=== PATIENT | male | born 1950 | race Caucasian/White ===

== ENCOUNTER 2022-05-26 05:09 | Day surgery (SDC) | payer MEDICARE, SELFPAY ==
[2022-05-14 15:19] VITALS: BMI 40.5
--- NOTE | 2022-05-25 10:19 | PM.HPGS ---
History of Present Illness History of Present Illness Consent: Risks, benefits, and alternatives have been discussed and questions answered. Patient agrees to proceed with procedure. Chief complaint: hx of colon polyps Narrative: Gaston Yoder is a 71 year old male Here for colon cancer screening. He has history of polyps, having had polyps removed in 11/2010 and also about 5 years ago. Review of Systems Review of Systems: All systems reviewed & are unremarkable except as noted in HPI and below PMFSH Past Medical History Medical History (Updated 05/25/22 @ 10:19 by Jourdan Chavira MD) Atrial fibrillation Diabetes type 2, controlled DOROTEO (obstructive sleep apnea) CPAP Pacemaker Surgical History Surgical History (Updated 05/23/22 @ 14:04 by Gustavo Del Angel DO) History of coronary artery stent placement x3, 2006 History of gastric bypass History of prostatectomy Social History Social History Smoking status: Former smoker Tobacco type: smokeless tobacco Smokeless tobacco user: chewing tobacco Alcohol intake: current Drinks per week: 7 Alcohol use details: COCTAILS Substance use: never Substance use type: does not use Living arrangements: with family Spiritual care concerns: No Meds Home Medications and Allergies Home Medications Medication Instructions Recorded Confirmed Type apixaban 5 mg tablet (Eliquis) 5 mg PO BID 05/14/22 05/26/22 History citalopram 20 mg tablet 20 mg PO DAILY 05/14/22 05/26/22 History dapagliflozin 10 mg tablet 10 mg PO DAILY 05/14/22 05/26/22 History (Farxiga) glimepiride 1 mg tablet 1 mg PO DAILY 05/14/22 05/26/22 History insulin glargine U-300 conc 300 24 unit subcut BID 05/14/22 05/26/22 History unit/mL (3 mL) subcutaneous pen (Toujeo Max U-300 SoloStar) latanoprost 0.005 % eye drops 1 drp EACH EYE HS 05/14/22 05/26/22 History lisinopril 20 mg tablet 20 mg PO DAILY 05/14/22 05/26/22 History magnesium oxide 400 mg (241.3 mg 800 mg PO BID 05/14/22 05/26/22 History magnesium) tablet metformin 500 mg tablet,extended 500 mg PO BID 05/14/22 05/26/22 History release 24 hr pantoprazole 40 mg tablet,delayed 40 mg PO BID 05/14/22 05/26/22 History release pioglitazone 45 mg tablet 45 mg PO DAILY 05/14/22 05/26/22 History simvastatin 40 mg tablet 40 mg PO DAILY 05/14/22 05/26/22 History sotalol 120 mg tablet 120 mg PO BID 05/14/22 05/26/22 History Allergies Allergy/AdvReac Type Severity Reaction Status Date / Time niacin Allergy Intermediate Rash Verified 05/26/22 07:40 Exam Const: General: alert Orientation/consciousness: patient oriented x3 Resp: Auscultation: clear to auscultation bilaterally Cardio: Rhythm: regular rhythm GI: GI Palp: Yes Soft to palpation and No Tenderness to palpation present (GI) Neuro: General: patient oriented x3 Assessment and Plan Assessment and plan (1) Colon cancer screening: Code(s): Z12.11 - Encounter for screening for malignant neoplasm of colon Status: Acute Assessment and Plan: Colonoscopy with possible biopsy or polypectomy or cautery or injection of substances.
[2022-05-26 07:30] VITALS: BP 114/64; PULSE 81; RESP 18; TEMP 36.4; O2SAT 98; BMI 39.9
--- NOTE | 2022-05-26 07:43 | P.PNAN_ITS ---
Anes - Initial Pre Proc Eval Procedure: Operation Date: 05/26/22 08:30 Proposed Procedures p Screening Colonoscopy - Jourdan Chavira MD Date/Time: 05/26/22 07:43 Surgeon: Jourdan Cahvira MD Pre Op Diagnosis: hx of colon polyps Patient Data Age: 71 Gender: M Height: 1.68 m Weight: 114 kg Allergies Allergy/AdvReac Type Severity Reaction Status Date / Time niacin Allergy Intermediate Rash Verified 05/26/22 07:40 Home Medications Medication Instructions Recorded Confirmed Type apixaban 5 mg tablet (Eliquis) 5 mg PO BID 05/14/22 05/26/22 History citalopram 20 mg tablet 20 mg PO DAILY 05/14/22 05/26/22 History dapagliflozin 10 mg tablet 10 mg PO DAILY 05/14/22 05/26/22 History (Farxiga) glimepiride 1 mg tablet 1 mg PO DAILY 05/14/22 05/26/22 History insulin glargine U-300 conc 300 24 unit subcut BID 05/14/22 05/26/22 History unit/mL (3 mL) subcutaneous pen (Toujeo Max U-300 SoloStar) latanoprost 0.005 % eye drops 1 drp EACH EYE HS 05/14/22 05/26/22 History lisinopril 20 mg tablet 20 mg PO DAILY 05/14/22 05/26/22 History magnesium oxide 400 mg (241.3 mg 800 mg PO BID 05/14/22 05/26/22 History magnesium) tablet metformin 500 mg tablet,extended 500 mg PO BID 05/14/22 05/26/22 History release 24 hr pantoprazole 40 mg tablet,delayed 40 mg PO BID 05/14/22 05/26/22 History release pioglitazone 45 mg tablet 45 mg PO DAILY 05/14/22 05/26/22 History simvastatin 40 mg tablet 40 mg PO DAILY 05/14/22 05/26/22 History sotalol 120 mg tablet 120 mg PO BID 05/14/22 05/26/22 History Patient hx anesthesia problems: none Family hx anesthesia problems: none Results Review: All pre-operative results and documents have been reviewed as part of the pre- operative evaluation. [facility] Past Medical History Medical History (Updated 05/25/22 @ 10:19 by Jourdan Chavira MD) Atrial fibrillation Diabetes type 2, controlled DOROTEO (obstructive sleep apnea) CPAP Pacemaker Surgical History Surgical History (Updated 05/23/22 @ 14:04 by Gustavo Del Angel DO) History of coronary artery stent placement x3, 2007 History of gastric bypass History of prostatectomy Social History Social History Smoking status: Former smoker Tobacco type: smokeless tobacco Smokeless tobacco user: chewing tobacco Alcohol intake: current Drinks per week: 7 Alcohol use details: COCTAILS Substance use: never Substance use type: does not use Living arrangements: with family Spiritual care concerns: No Anes - Eval Final PreProcedure Day of Procedure 05/26/22 07:43 Patient weight: morbidly obese Heart: regular rate and rhythm Lungs: clear to auscultation Airway: Mallampati scale class II Neurological: alert and oriented Last oral intake: >/= 8 hours ASA classification: III Emergent: no Anesthetic plan: proceed Anesthesia type and monitoring: general GIVS and standard monitoring Results Review: All pre-operative results and documents have been reviewed as part of the pre- operative evaluation. Informed Consent: The patient's anesthetic plan and its attendant risks and benefits were discussed with the patient/family/POA. Questions were solicited and answers provided to the satisfaction of the patient/family/POA.
[2022-05-26] MEDS: LACTATED RINGERS 1,000 ML 150 ML IV CONT (07:52)
[2022-05-26 07:55] LABS: Glucose Point of Care 141 mg/dl (65-105)
[2022-05-26 08:35] VITALS: BP 130/72; PULSE 80; RESP 19; O2SAT 100
[2022-05-26 08:45] VITALS: BP 130/89; PULSE 80; RESP 23; O2SAT 100
[2022-05-26 08:55] VITALS: BP 133/85; PULSE 80; RESP 20; O2SAT 100
[2022-05-26 09:02] LABS: Glucose Point of Care 118 mg/dl (65-105)
== END 2022-05-26 09:03 | disposition home or self-care (01) ==
PROVIDERS: PCP Internal Medicine; Visit Provider Internal Medicine Gastroenterology
PROC: 0DJD8ZZ Inspection of Lower Intestinal Tract, Via Natural or Artificial Opening Endoscopic (ICD-10-PCS; CPT 45378; principal; 2022-05-26 08:30)
DX: Z12.11 Encounter for screening for malignant neoplasm of colon (principal); K57.30 Diverticulosis of large intestine without perforation or abscess without bleeding; K63.5 Polyp of colon; Z79.82 Long term (current) use of aspirin; Z79.84 Long term (current) use of oral hypoglycemic drugs; Z79.4 Long term (current) use of insulin; G47.33 Obstructive sleep apnea (adult) (pediatric); Z95.0 Presence of cardiac pacemaker; Z87.891 Personal history of nicotine dependence; E66.9 Obesity, unspecified; Z68.41 Body mass index [BMI] 40.0-44.9, adult; Z95.5 Presence of coronary angioplasty implant and graft; Z98.84 Bariatric surgery status
CPT/HCPCS: 45385; 82948; 88305; J2704; J7120